=== PATIENT | female | born 1985 | race African-American/Black ===

== ENCOUNTER 2017-02-15 07:32 | Emergency (ER) | payer OTHER ==
[~2017-02-15] VITALS: Ht 157.5 cm; Wt 64.5 kg
[2017-02-15 07:37] VITALS: BP 127/94
[2017-02-15] MEDS ORDERED: PredniSONE 20 MG TABLET PO ONE (08:15)
[2017-02-15] MEDS ORDERED: DiphenhydrAMINE HCL 50 MG/ML VIAL IM ONE (08:15)
== END 2017-02-15 08:39 | disposition home or self-care (01) ==
LOC: EMS 07:33
DX: L50.9 Urticaria, unspecified (principal)
CPT/HCPCS: 96372; 99283; J1200; J7512

== ENCOUNTER 2017-02-26 07:47 | Emergency (ER) | payer OTHER ==
[~2017-02-26] VITALS: Ht 157.5 cm; Wt 66.4 kg
[2017-02-26 08:41] LABS: BASOPHILS % (AUTO) 0.1 % (0.0-2.0); EOSINOPHILS % (AUTO) 0 % (1.0-6.0); HEMATOCRIT 43.8 % (36-46); HEMOGLOBIN 14.1 g/dL (12.0-16.0); LYMPHOCYTES # (AUTO) 1.8 K/uL (1.0-4.8); LYMPHOCYTES % (AUTO) 16.3 % (22.0-44.0); MEAN CORPUSCULAR HEMOGLOBIN 29.1 pg (26.0-34.0); MEAN CORPUSCULAR HGB CONC 32.1 G/dL (31.0-37.0); MEAN CORPUSCULAR VOLUME 91 fL (80-100); MONOCYTES # (AUTO) 0.3 K/uL (0.1-1.0); NEUTROPHILS # (AUTO) 8.9 K/uL (1.8-7.7); NEUTROPHILS % (AUTO) 80.6 % (40.0-70.0); PLATELET COUNT (AUTO) 317 K/uL (150-450); RED BLOOD CELL COUNT(AUTO) 4.84 MIL/uL (4.00-5.20)
[2017-02-26 09:00] LABS: ANION GAP 18 mmol/L (8-16); CALCIUM, TOTAL 9.4 mg/dL (8.8-10.5); CARBON DIOXIDE 21 mmol/L (22-29); CHLORIDE 101 mmol/L (98-107); CREATININE 0.75 mg/dL (0.60-1.30); GLOMERULAR FILTR. RATE CALC > 60 mL/min (>60); POTASSIUM 3.4 mmol/L (3.5-5.1); SODIUM SERUM 140 mmol/L (136-145); UREA NITROGEN, BLOOD 8 mg/dL (7-18)
[2017-02-26 09:02] LABS: ALANINE AMINOTRANSFERASE 37 U/L (12-78); ALBUMIN 4.6 g/dL (3.4-5.0); ASPARTATE AMINOTRANSFERASE 23 U/L (15-37); BILIRUBIN,TOTAL 0.3 mg/dL (0.1-1.0); TOTAL PROTEIN, SERUM 8.8 g/dL (6.4-8.2)
[2017-02-26] MEDS: SODIUM CHLORIDE 0.9% 1,000 ML IV ONE (09:20)
[2017-02-26] MEDS: PANTOPRAZOLE SODIUM 40 MG/VIAL IVP ONE (09:20)
[2017-02-26] MEDS: MAG HYDROX/AL HYDROX/SIMETH ES 30 ML SUSPENSION UDCUP PO ONE (09:29)
[2017-02-26] MEDS: ONDANSETRON HCL 4 MG/2 ML VIAL IVP ONE ×2 (09:39→09:45)
[2017-02-26] MEDS: PROMETHAZINE HCL 25 MG/ML VIAL IM ONE (09:49)
[2017-02-26 11:42] VITALS: BP 137/95
== END 2017-02-26 12:41 | disposition home or self-care (01) ==
LOC: EMS 07:48
DX: K29.20 Alcoholic gastritis without bleeding (principal)
CPT/HCPCS: 36415; 80053; 83690; 85025; 96361; 96372; 96374; 96375; 99284; C9113; J2405; J2550; J7030

== ENCOUNTER 2017-08-12 23:24 | Emergency (ER) | payer OTHER ==
[~2017-08-12] VITALS: Ht 157.5 cm; Wt 67.3 kg
[2017-08-13 01:00] VITALS: BP 124/72
[2017-08-13] MEDS ORDERED: DiphenhydrAMINE HCL 25 MG CAPSULE PO ONE (01:00)
[2017-08-13] MEDS ORDERED: CEPHALEXIN MONOHYDRATE 500 MG CAPSULE PO ONE (01:00)
== END 2017-08-13 01:16 | disposition home or self-care (01) ==
LOC: EMS 23:25
DX: L03.116 Cellulitis of left lower limb (principal)
CPT/HCPCS: 99283